=== PATIENT | male | born 2000 | race Caucasian/White ===

== ENCOUNTER 2019-06-04 00:20 | Emergency (ER) | payer SELFPAY ==
[~2019-06-04] VITALS: Ht 172.7 cm; Wt 82.5 kg
[2019-06-04] MEDS ORDERED: LACTATED RINGERS 1,000 ML IV ONE ×2 (00:26→01:47)
[2019-06-04 00:41] LABS: BASOPHILS % (AUTO) 0 % (0-10); EOSINOPHILS # (AUTO) 0.2 10^3/uL (0.0-0.3); EOSINOPHILS % (AUTO) 3 % (0-10); HEMATOCRIT 43 % (40-54); HEMOGLOBIN 14.9 G/DL (13.3-17.7); LYMPHOCYTES # (AUTO) 2.2 X 10^3 (1.0-4.0); LYMPHOCYTES % (AUTO) 31 % (12-44); MEAN CORPUSCULAR HEMOGLOBIN 32 PG (25-34); MEAN CORPUSCULAR HGB CONC 34 G/DL (32-36); MEAN CORPUSCULAR VOLUME 92 FL (80-99); MEAN PLATELET VOLUME 8.6 FL (7.4-10.4); MONOCYTES # (AUTO) 0.4 X 10^3 (0.0-1.0); MONOCYTES % (AUTO) 6 % (0-12); NEUTROPHILS # (AUTO) 4.3 X 10^3 (1.8-7.8); NEUTROPHILS % (AUTO) 60 % (42-75); PLATELET COUNT 320 10^3/uL (130-400); RED CELL DISTRIBUTION WIDTH 12.6 % (10.0-14.5); WHITE BLOOD COUNT 7.1 10^3/uL (4.3-11.0)
[2019-06-04 00:55] LABS: INR 0.9 (0.8-1.4)
[2019-06-04 01:02] LABS: ALANINE AMINOTRANSFERASE 17 U/L (0-55); ALBUMIN 4.9 GM/DL (3.2-4.5); ALKALINE PHOSPHATASE 54 U/L (40-136); BILIRUBIN,TOTAL 0.3 MG/DL (0.1-1.0); BUN/CREATININE RATIO 7; CALCIUM 9.4 MG/DL (8.5-10.1); CARBON DIOXIDE 23 MMOL/L (21-32); CHLORIDE 106 MMOL/L (98-107); CREATININE SERUM 1.17 MG/DL (0.60-1.30); GFR ESTIMATED > 60; GLUCOSE 98 MG/DL (70-105); MAGNESIUM 2.2 MG/DL (1.6-2.4); POTASSIUM 3.8 MMOL/L (3.6-5.0); SODIUM 143 MMOL/L (135-145); TOTAL PROTEIN 7.7 GM/DL (6.4-8.2)
[2019-06-04 01:08] LABS: BILIRUBIN,URINE NEGATIVE (NEGATIVE); CLARITY,URINE CLEAR; COLOR,URINE YELLOW; GLUCOSE, URINE (UA) NEGATIVE (NEGATIVE); KETONES,URINE NEGATIVE (NEGATIVE); LEUKOCYTE ESTERASE ,URINE NEGATIVE (NEGATIVE); NITRITE,URINE NEGATIVE (NEGATIVE); PH,URINE 5 (5-9); PROTEIN,URINE NEGATIVE (NEGATIVE)
[2019-06-04 01:16] LABS: BACTERIA,URINE NEGATIVE /HPF; SQUAMOUS EPITHELIAL CELL,UR RARE /HPF
[2019-06-04 01:30] LABS: AMPHETAMINE SCREEN, URINE NEGATIVE (NEGATIVE); BARBITURATE SCREEN URINE NEGATIVE (NEGATIVE); BENZODIAZEPINES SCREEN URINE NEGATIVE (NEGATIVE); CANNABINOID SCREEN, URINE NEGATIVE (NEGATIVE); COCAINE SCREEN URINE NEGATIVE (NEGATIVE); METHADONE STAT NEGATIVE (NEGATIVE); METHAMPHETAMINE SCREEN URINE S NEGATIVE (NEGATIVE); OPIATE SCREEN URINE NEGATIVE (NEGATIVE); OXYCODONE STAT NEGATIVE (NEGATIVE); PROPOXYPHENE STAT NEGATIVE (NEGATIVE); TRICYCLIC ANTIDEPRESSANTS SCRE NEGATIVE (NEGATIVE)
[2019-06-04 01:30] LABS: ACETAMINOPHEN < 10 UG/ML (10-30)
--- NOTE | 2019-06-04 02:39 | ED Head Injury ---
General Chief Complaint: Trauma-Non Activation Stated Complaint: INTOXICATED/HEAD INJ Allergies and Home Medications Allergies Coded Allergies: No Known Drug Allergies (Unverified , 06/04/19) Physical Exam Vital Signs Capillary Refill : Height, Weight, BMI Height: '" Weight: lbs. oz. kg; BMI Method: Progress/Results/Core Measures Results/Orders Lab Results Laboratory Tests Test 06/04/19 00:30 06/04/19 00:58 Range/Units White Blood Count 7.1 4.3-11.0 10^3/uL Red Blood Count 4.71 4.35-5.85 10^6/uL Hemoglobin 14.9 13.3-17.7 G/DL Hematocrit 43 40-54 % Mean Corpuscular Volume 92 80-99 FL Mean Corpuscular Hemoglobin 32 25-34 PG Mean Corpuscular Hemoglobin Concent 34 32-36 G/DL Red Cell Distribution Width 12.6 10.0-14.5 % Platelet Count 320 130-400 10^3/uL Mean Platelet Volume 8.6 7.4-10.4 FL Neutrophils (%) (Auto) 60 42-75 % Lymphocytes (%) (Auto) 31 12-44 % Monocytes (%) (Auto) 6 0-12 % Eosinophils (%) (Auto) 3 0-10 % Basophils (%) (Auto) 0 0-10 % Neutrophils # (Auto) 4.3 1.8-7.8 X 10^3 Lymphocytes # (Auto) 2.2 1.0-4.0 X 10^3 Monocytes # (Auto) 0.4 0.0-1.0 X 10^3 Eosinophils # (Auto) 0.2 0.0-0.3 10^3/uL Basophils # (Auto) 0.0 0.0-0.1 10^3/uL Prothrombin Time 13.0 12.2-14.7 SEC INR Comment 0.9 0.8-1.4 Activated Partial Thromboplast Time 26 24-35 SEC Sodium Level 143 135-145 MMOL/L Potassium Level 3.8 3.6-5.0 MMOL/L Chloride Level 106 98-107 MMOL/L Carbon Dioxide Level 23 21-32 MMOL/L Anion Gap 14 5-14 MMOL/L Blood Urea Nitrogen 8 7-18 MG/DL Creatinine 1.17 0.60-1.30 MG/DL Estimat Glomerular Filtration Rate > 60 BUN/Creatinine Ratio 7 Glucose Level 98 70-105 MG/DL Calcium Level 9.4 8.5-10.1 MG/DL Corrected Calcium 8.5-10.1 MG/DL Magnesium Level 2.2 1.6-2.4 MG/DL Total Bilirubin 0.3 0.1-1.0 MG/DL Aspartate Amino Transf (AST/SGOT) 16 5-34 U/L Alanine Aminotransferase (ALT/SGPT) 17 0-55 U/L Alkaline Phosphatase 54 40-136 U/L Total Protein 7.7 6.4-8.2 GM/DL Albumin 4.9 H 3.2-4.5 GM/DL Acetaminophen Level < 10 L 10-30 UG/ML Serum Alcohol 302 *H <10 MG/DL Urine Color YELLOW Urine Clarity CLEAR Urine pH 5 5-9 Urine Specific [place] 1.005 L 1.016-1.022 Urine Protein NEGATIVE NEGATIVE Urine Glucose (UA) NEGATIVE NEGATIVE Urine Ketones NEGATIVE NEGATIVE Urine Nitrite NEGATIVE NEGATIVE Urine Bilirubin NEGATIVE NEGATIVE Urine Urobilinogen NORMAL NORMAL MG/DL Urine Leukocyte Esterase NEGATIVE NEGATIVE Urine RBC (Auto) NEGATIVE NEGATIVE Urine RBC NONE /HPF Urine WBC NONE /HPF Urine Squamous Epithelial Cells RARE /HPF Urine Crystals NONE /LPF Urine Bacteria NEGATIVE /HPF Urine Casts NONE /LPF Urine Mucus NEGATIVE /LPF Urine Culture Indicated NO Urine Opiates Screen NEGATIVE NEGATIVE Urine Oxycodone Screen NEGATIVE NEGATIVE Urine Methadone Screen NEGATIVE NEGATIVE Urine Propoxyphene Screen NEGATIVE NEGATIVE Urine Barbiturates Screen NEGATIVE NEGATIVE Ur Tricyclic Antidepressants Screen NEGATIVE NEGATIVE Urine Phencyclidine Screen NEGATIVE NEGATIVE Urine Amphetamines Screen NEGATIVE NEGATIVE Urine Methamphetamines Screen NEGATIVE NEGATIVE Urine Benzodiazepines Screen NEGATIVE NEGATIVE Urine Cocaine Screen NEGATIVE NEGATIVE Urine Cannabinoids Screen NEGATIVE NEGATIVE My Orders Orders - JOSE ANGEL DEWITT DO Ed Iv/Invasive Line Start (06/04/19:) Monitor-Rhythm Ecg Trace Only (06/04/19:) Ct Head/Cervical Spine Wo (06/04/19) Cervical Collar (06/04/19) Chest 1 View, Ap/Pa Only (06/04/19) Acetaminophen (06/04/19:) Alcohol (06/04/19:) Cbc With Automated Diff (06/04/19) Comprehensive Metabolic Panel (10/20/19 00:26) Drug Screen Stat (Urine) (06/04/19 00:26) Magnesium (06/04/19 00:26) Protime With Inr (06/04/19 00:26) Partial Thromboplastin Time (06/04/19 00:26) Ua Culture If Indicated (06/04/19 00:26) Ed Iv/Invasive Line Start (06/04/19 00:26) Lactated Ringers (Lr 1000 Ml Iv Solution (06/04/19 00:26) Ed Iv/Invasive Line Start (06/04/19 01:47) Lactated Ringers (Lr 1000 Ml Iv Solution (06/04/19 01:47) Medications Given in ED Current Medications Medications Dose Ordered Sig/Daniel Route Start Time Stop Time Status Last Admin Dose Admin Lactated Ringer's 1,000 ml @ 0 mls/hr Q0M ONCE IV 06/04/19 00:26 06/04/19 00:29 DC 06/04/19 00:40 1,000 MLS/HR Lactated Ringer's 1,000 ml @ 0 mls/hr Q0M ONCE IV 06/04/19 01:47 06/04/19 01:48 DC 06/04/19 02:06 1,000 MLS/HR Departure Impression Primary Impression: Closed head injury with brief loss of consciousness Additional Impressions: Cervical strain Alcohol intoxication Disposition: 01 HOME, SELF-CARE Condition: Stable Departure-Patient Inst. Patient Instructions: Concussion, Adult (DC), Neck Sprain (DC), Alcohol Abuse and Alcoholism (DC) Add. Discharge Instructions: NO ALCOHOL!! LOTS OF CLEAR LIQUIDS--WATER, BROTH, JELLO, GATORADE TYLENOL NEEDED FOR PAIN RETURN TO ER IF PROBLEMS All discharge instructions reviewed with patient and/or family. Voiced understanding. JOSE ANGEL DEWITT DO Jun 04, 2019 02:39
[2019-06-04 02:52] VITALS: BP 136/88
--- NOTE | 2019-06-04 07:02 | Diagnostic Imaging Report ---
PROCEDURE: CT head and CT cervical spine without contrast. TECHNIQUE: Multiple contiguous axial images were obtained through the brain and cervical spine without the use of intravenous contrast. Sagittal and coronal reformations through the cervical spine were then performed. Auto Exposure Controls were utilized during the CT exam to meet ALARA standards for radiation dose reduction. INDICATION: Head and neck pain after fall. FINDINGS: The ventricles and sulci are within normal limits. There is no hydrocephalus or cerebral edema. There is no midline shift or mass effect. There is no intracranial mass, hemorrhage or extra-axial fluid collection. The visualized paranasal sinuses and mastoid air cells are clear. No fractures are identified. CERVICAL SPINE: Alignment is normal. There is no fracture or traumatic subluxation. The prevertebral soft tissues are within normal limits. The odontoid is intact and the lateral masses are well aligned. There are no soft tissue abnormalities. IMPRESSION: 1. No acute intracranial process. 2. No focal abnormality in the cervical spine. Dictated by: Dictated on workstation # [id number]
--- NOTE | 2019-06-04 08:09 | Diagnostic Imaging Report ---
EXAMINATION: Chest 1 view HISTORY: Trauma FINDINGS: No comparison available. The lungs are clear. No edema. No pneumonia. No pleural effusion. No pneumothorax. Heart is normal in size. IMPRESSION: 1. Clear lungs. Dictated by: Dictated on workstation # [id number]
== END 2019-06-04 02:52 | disposition home or self-care (01) ==
LOC: ER 00:25
DX: S06.0X9A Concussion with loss of consciousness of unspecified duration, initial encounter (principal); S16.1XXA Strain of muscle, fascia and tendon at neck level, initial encounter; F10.129 Alcohol abuse with intoxication, unspecified; X58.XXXA Exposure to other specified factors, initial encounter
CPT/HCPCS: 36415; 70450; 71045; 72125; 80053; 80306; 80320; 80329; 81000; 83735; 85025; 85610; 85730; 93041